=== PATIENT | female | born 1985 | race Caucasian/White ===

== ENCOUNTER 2023-06-29 09:48 | Outpatient (CLI) | payer OTHER, SELFPAY ==
--- NOTE | ~2023-06-29 | MMUS_ITS ---
EXAMINATION: MM diagnostic dannie BI w reyna, US breast LT limited HISTORY: Upper inner quadrant left breast lump TECHNIQUE: ML, MLO and CC 3-D tomosynthesis images of both breasts were performed and synthetic 2-D i mages were generated. CAD analysis was submitted and interpreted. High resolution targeted left breas t ultrasound examination at complaint of left breast lump was performed. COMPARISON: None BREAST PARENCHYMAL COMPOSITION: There are scattered areas of fibroglandular density. FINDINGS: MAMMOGRAPHIC FINDINGS: No suspicious mass or architectural distortion, malignant calcification, skin thickening or retractio n is detected. ULTRASOUND: Targeted ultrasound at the area of clinical complaint of left breast lump at 9:00 8 cm from the nippl e reveals no suspicious mass or shadowing, cyst or other significant sonographic abnormality. IMPRESSION: 1. No evidence of malignancy 2. Routine annual mammographic screening beginning at age 40 is recommended unless there are earlier symptoms or physical findings BI-RADS Category 1: Negative Reviewed, dictated and finalized at location A. IMPRESSION: 1. No evidence of malignancy 2. Routine annual mammographic screening beginning at age 40 is recommended unl ess there are earlier symptoms or physical findings BI-RADS Category 1: Negative
== END 2023-06-29 09:49 | disposition home or self-care (01) ==
PROVIDERS: PCP Internal Medicine; Visit Provider Obstetrics & Gynecology Gynecology
DX: N63.22 Unspecified lump in the left breast, upper inner quadrant (principal)
CPT/HCPCS: 76642; 77062; 77066; G0279

== ENCOUNTER 2024-11-05 14:47 | Outpatient (CLI) | payer BC, SELFPAY ==
--- OUTSIDE RECORDS SUMMARY | 2024-11-05 14:52 | XMS_ITS | Referral Summary ---
Author Organization [facility] Address [address] [place] [id number] Phone Care Team Providers Care Construction Supervisor/Carpenter Name Role Phone Marcus Escudero MD Primary Care Provide r Allergies No known active allergies Medications ondansetron ODT (ZOFRAN-ODT) 4 mg disintegrating tablet Take 1 tablet (4 mg total) by mouth every 8 (eight) hours as needed for nausea or vomiting 12 tablet 3 Active ketorolac (TORADOL) 10 mg tablet Take 1 tablet (10 mg total) by mouth every 6 (six) hours as needed for pain 10 tablet 3 Active Social History Tobacco Use Types Packs/Day Years Used Date Smoking Tobacco: Never Assessed Personal Safety Answer Date Recorded Getting School Help Needed Not on file 09/27 Comments Unknown Sex and Gender Information Value Date Recorded Sex Assigned at Not on file Legal Sex Female 9:31 AM CDT Gender Identity Not on file Sexual Orientation Not on file Last Filed Vital Signs Vital Sign Reading Time Taken Comments Blood Pressure 119/82 09/25/2022 1:27 PM CDT Pulse 86 09/25/2022 1:27 PM CDT Temperature 36.4 C (97.5 F) 09/25/2022 9:31 AM CDT Respiratory Rate 20 09/25/2022 1:27 PM CDT Oxygen Saturation 97% 09/25/2022 1:27 PM CDT Inhaled Oxygen Concentration - - Weight 88.7 kg (195 lb 8.8 oz) 09/25/2022 9:31 A M CDT Height 167.6 cm (5' 6) 09/25/2022 9:31 AM CDT Body Mass Index 31.56 09/25/2022 9:31 AM CDT Plan of Treatment Not on file Insurance [facility] Address: [place] [address] CHOICE PLUS [facility]/PPO Address: [place] [address] Care Teams Construction Supervisor/Carpenter Relationship Specialty Start Date End Date Marcus Escudero MD [address] [id number] PCP - General Internal Medicine 09/25/22
--- OUTSIDE RECORDS SUMMARY | 2024-11-05 14:52 | XMS_ITS | Data Portability ---
Author Organization [place] [facility], Main Office Address [address] [place] [address] Assessment Encounter Date Assessment Date Assessment LastModified by Organization Details LastModified Time 05/01/2023 05/01/2023 05/28/2022: Omar Tay NP Endo TSH/FT4/CMP/L ipids: WNL A1C 5.5 Insulin 38.1H 11/14/2022: Labs: Stable 03/24/2023: PLT 475 TG 205 Not available 05/01/2023 11:06:45 09/25/2023 09/25/2023 05/28/2022: Omar Tay NP Endo TSH/FT4/CMP/L ipids: WNL A1C 5.5 Insulin 38.1H 11/14/2022: Labs: Stable 03/24/2023: PLT 475 TG 205 09/18/2023: WBC: 11.8, PLT 459 TG 298 A1C 5.6 Not available 09/25/2023 10:05:07 05/22/2024 05/22/2024 05/28/2022: Omar Tay NP Endo TSH/FT4/CMP/L ipids: WNL A1C 5.5 Insulin 38.1H 11/14/2022: Labs: Stable 03/24/2023: PLT 475 TG 205 09/18/2023: WBC: 11.8, PLT 459 TG 298 A1C 5.6 Not available 05/22/2024 18:24:05 09/18/2024 09/18/2024 05/28/2022: Omar Tay NP Endo TSH/FT4/CMP/L ipids: WNL A1C 5.5 Insulin 38.1H 11/14/2022: Labs: Stable 03/24/2023: PLT 475 TG 205 09/18/2023: WBC: 11.8, PLT 459 TG 298 A1C 5.6 06/17/2024: a1c 5.9 VIT D 22.0 wbc 13.1 [email or web address] Not available 09/18/2024 18:47:43 Plan of Treatment Reminders Order Date Submit Date Provider Last Modified By Organization Details Last Modified Time Details Appointments Follow Up 15 2024 04:15P Brenda grover MD Not available Not available Not available Lab HbA1c (hemoglob in A1c), blood 2024 025 LUCIA [facility], [address] [place] [address], [address], [place], [address], 09/18/2024 14:29:54 microalbu min, urine 2024 025 LUCIA [facility], [address] [place] [address], [address], [place], [address], 09/18/2024 14:29:54 DICK + rf (antinucl ear antibodie s + rheumatoi d factor), quantitat wendy, serum 2024 025 [email or web address] [facility], [address] [place] [address], [address], [place], [address], 09/25/2024 09:01:39 C-reactiv e protein, quantitat wendy, serum or plasma 2024 025 [email or web address] [facility], [address] [place] [address], [address], [place], [address], 09/25/2024 09:01:48 ESR (erythroc yte sedimenta tion rate), blood 2024 025 [email or web address] [facility], [address] [place] [address], [address], [place], [address], 09/25/2024 09:01:57 ccp (cyclic citrullin ated peptide) iga+igg, serum 2024 025 [place] [address] [facility], [address], [address], [place], [address], 09/25/2024 09:02:07 rf (rheumato id factor), serum 2024 025 [place] [address] [facility], [address], [address], [place], [address], 09/25/2024 09:02:16 lipid panel, serum 2024 025 [facility], [facility], [address], [place], [address], 09/18/2024 14:29:53 CBC w/ auto diff 2024 025 [facility], [facility] [address], [address], [place], [address], 09/18/2024 14:29:54 CMP, serum or plasma 2024 025 [facility], [facility] [address], [address], [place], [address], 09/18/2024 14:29:53 TSH + free T4, serum 2024 025 [facility], [facility] [address], [address], [place], [address], 09/18/2024 14:29:52 vitamin D, 25-hydrox y, total, serum 2024 025 [facility], [facility] [address], [address], [place], [address], 09/18/2024 14:29:52 vitamin B12 + folate, serum or blood 2024 025 L[facility]IA [facility], [address], [address], [place], [address], 09/18/2024 14:29:53 HbA1c (hemoglob in A1c), blood 2024 025 [facility], [address], [address], [place], [address], 06/21/2024 16:12:48 microalbu min, urine 2024 025 [facility], [address], [address], [place], [address], 06/21/2024 16:12:50 lipid panel, serum 2024 025 [facility], [address] [facility] [address], [address], [place], [address], 06/21/2024 16:12:47 CBC w/ auto diff 2024 025 [facility], [address], [address], [place], [address], 06/21/2024 16:12:44 CMP, serum or plasma 2024 025 [facility], [address] [facility] [address], [address], [place], [address], 06/21/2024 16:12:45 TSH + free T4, serum 2024 025 [facility], [address], [address], [place], [address], 06/21/2024 16:12:43 vitamin D, 25-hydrox y, total, serum 2024 025 L[facility], [address], [address], [place], [address], 06/21/2024 16:12:49 vitamin B12 + folate, serum or blood 2024 025 LUCIA [facility], [address], [address], [place], [address], 06/21/2024 16:12:42 HbA1c (hemoglob in A1c), blood 2023 024 natalie [facility], [address], [address], [place], [address], 09/23/2024 10:10:17 microalbu min, urine 2023 024 natalie [facility], [address], [address], [place], [address], 09/23/2024 10:10:17 lipid panel, serum 2023 024 natalie [facility], [address], [address], [place], [address], 09/23/2024 10:10:18 CBC w/ auto diff 2023 024 natalie [facility], [address], [address], [place], [address], 09/23/2024 10:10:18 CMP, serum or plasma 2023 024 natalie [facility], [address], [address], [place], [address], 09/23/2024 10:10:18 TSH + free T4, serum 2023 024 [email or web address] [facility], [address], [address], [place], [address], 09/23/2024 10:10:18 vitamin D, 25-hydrox y, total, serum 2023 024 natalie [facility], [address], [address], [place], [address], 09/23/2024 10:10:17 vitamin B12 + folate, serum or blood 2023 024 natalie [facility], [address], [address], [place], [address], 09/30/2024 09:04:21 vitamin D, 25-hydrox y, total, serum 2023 024 natalie [facility], [address], [address], [place], [address], 11/01/2023 17:36:19 HbA1c (hemoglob in A1c), blood 2023 024 natalie [facility], [address], [address], [place], [address], 11/01/2023 17:36:19 microalbu min, urine 2023 024 natalie [facility], [address], [address], [place], [address], 11/01/2023 17:36:19 lipid panel, serum 2023 024 natalie [facility], [address], [address], [place], [address], 11/01/2023 17:36:19 CBC w/ auto diff 2023 024 [place] [address] [facility], [address] [facility] [address], [address], [place], [address], 11/01/2023 17:36:20 CMP, serum or plasma 2023 024 [place] [address] [facility], [address] [facility] [address], [address], [place], [address], 11/01/2023 17:36:20 TSH + free T4, serum 2023 024 [place] [address] [facility], [address] [facility] [address], [address], [place], [address], 11/01/2023 17:36:20 Referral hematolog ist referral - Please call patient to schedule an appointme nt. Thank you. 2024 025 ANTONIO Marvin MD, [address], [place], [address], 09/25/2024 10:35:38 podiatris t referral - Please call patient to schedule an appointme nt. Thank you. 2024 025 LUCIA Burnham DPM, [address] [facility], [address], [place], [address], 09/22/2024 17:20:30 gastroent erologist referral - Please call patient to schedule an appointme nt. Thank you. 2024 025 ANTONIO Robles MD, [address] [facility], [address], [place], [address], 09/25/2024 10:25:21 hematolog ist referral - Please call patient to schedule an appointme nt. Thank you. 2024 025 torsten Marvin MD, [address], [place], [address], 06/27/2024 15:22:30 gastroent erologist referral - Please call patient to schedule an appointme nt. Thank you. 2024 025 torsten Robles MD, [address], [address], [place], [address], 06/21/2024 09:20:36 endocrino logy referral - Please call patient to schedule an appoitnme nt. Thank you. 2024 025 torsten Bush MD, [address], [place], [address], 06/21/2024 09:20:25 hematolog ist referral 2023 024 [email or web address] 2 Carlin Marvin MD, [address], [place], [address], 07/22/2024 09:08:18 gastroent erologist referral 2023 024 [email or web address] 2 Krista Robles MD, [address], [address], [place], [address], 07/22/2024 09:08:19 endocrino logy referral 2023 024 [email or web address] Everton Bush MD, [address], [place], [address], 03/25/2024 09:30:03 dermatolo gist referral 2023 024 [email or web address] [facility], [facility] [place], [address], 03/25/2024 09:30:02 endocrino logy referral 2023 024 [email or web address] Everton Bush MD, [address], [place], [address], 11/29/2023 08:51:24 dermatolo gist referral 2023 024 [email or web address] [facility], [address] [place], [address], 11/01/2023 17:35:40 Procedures None recorded. Surgeries None recorded. Imaging US, liver - Please call patient to schedule. [address] ([facility]), [address] [place], [address], 09/18/2024 15:24:44 US, liver - Please call patient to schedule. [address] ([facility]), [address] [place], [address], 06/26/2024 11:21:56 US, liver [address] [facility], [address] [place] [address], [address], 04/15/2024 14:16:08 Medication Orders Zepbound 7.5 mg/0.5 mL subcutane ous pen injector 2024 025 [id number], [address], [place], [id number], 09/18/2024 14:30:05 cholecalc iferol (vitamin D3) 1,250 mcg (50,000 unit) capsule 2024 025 [facility] #29176, [address], [place], [id number], 09/18/2024 14:29:43 losartan 25 mg tablet 2024 025 [facility] #[id number], [address], [place], [id number], 05/22/2024 18:37:23 rosuvasta tin 40 mg tablet 2024 025 [facility] #06979, [address], [place], [id number], 05/22/2024 18:37:24 escitalop jose 20 mg tablet 2024 025 [facility] #77311, [address], [place], [id number], 05/22/2024 18:37:23 trazodone 50 mg tablet 2024 025 [facility] #07207, [address], [place], [id number], 05/22/2024 18:37:23 metformin ER 500 mg tablet,ex tended release 24 hr 2024 025 [facility] #[id number], [address], [place], [id number], 05/22/2024 18:37:25 Vascepa 1 gram capsule 2023 024 [email or web address] [facility], [address] [place] [address], [address], 09/29/2023 11:02:26 Ozempic 2 mg/dose (8 mg/3 mL) subcutane ous pen injector 2023 024 [email or web address] [facility], [address] [place] [address], [address], 05/22/2024 18:18:48 rosuvasta tin 40 mg tablet 2022 023 [facility], [address] [place] [address], [address], 01/17/2023 16:45:51 Ozempic 2 mg/dose (8 mg/3 mL) subcutane ous pen injector 2022 023 [facility], [address] [place] [address], [id number], 05/22/2024 18:18:48 escitalop jose 10 mg tablet 2022 023 [email or web address] [facility], [address] [place] [address], [address], 05/22/2024 18:32:38 ergocalci ferol (vitamin D2) 1,250 mcg (50,000 unit) capsule 2022 023 [facility], [address] [place] [address], [address], 05/22/2024 18:18:07 losartan 25 mg tablet 2022 023 [facility], [address] [place] [address], [address], 01/17/2023 16:45:52 metformin ER 500 mg tablet,ex tended release 24 hr 2022 023 [facility], [address] [place] [address], [address], 01/17/2023 16:43:53 spironola ctone 100 mg tablet 2022 023 [facility], [address] [place] [address], [address], 01/17/2023 16:43:53 Precious Fe 1.5/30 (28) 1.5 mg-30 mcg (21)/75 mg (7) tablet 2022 023 [facility], [address] [place] [address], [address], 01/17/2023 16:46:32 Patient TargetsNo targets recorded. Patient InstructionsNo instructions recorded. Reason for Referral Speech Communication Instructor Referral for S kin lesion Referring Physician: Kota Escudero Internal Medicine, Encounter Date: 05/01/2023 Endocrinology Referral for P olycystic ovary syndrome Referring Physician: Kota Escudero Internal Medicine, Encounter Date: 05/01/2023 Speech Communication Instructor Referral for S kin lesion Referring Physician: Kota Escudero Internal Medicine, Encounter Date: 09/25/2023 Endocrinology Referral for P olycystic ovary syndrome Referring Physician: Kota Escudero Internal Medicine, Encounter Date: 09/25/2023 Referring Physician: Kota Escudero Internal Medicine, Encounter Date: 09/25/2023 Installation Coordinator Referral for Steatotic liver disease Referring Physician: Kota Escudero Internal Medicine, Encounter Date: 09/25/2023 Endocrinology Referral for P olycystic ovary syndrome Please call patient to schedule an appoitnment. Thank you. Referring Physician: Kota Escudero Internal Medicine, Encounter Date: 05/22/2024 Please call patient to sched ule an appointment. Thank you. Referring Physician: Alo Calloway Medicine, Encounter Date: 05/22/2024 Installation Coordinator Referral for Steatotic liver disease Please call patient to schedule an appointment. Thank you. Referring Physician: Kota Escudero Internal Medicine, Encounter Date: 05/22/2024 Please call patient to sched ule an appointment. Thank you. Referring Physician: Kota Escudero Internal Medicine, Encounter Date: 09/18/2024 Installation Coordinator Referral for Steatotic liver disease Please call patient to schedule an appointment. Thank you. Referring Physician: Kota Escudero Internal Medicine, Encounter Date: 09/18/2024 Dental Cream Maker Referral for Pred iabetes Please call patient to schedule an appointment. Thank you. Referring Physician: Kota Escudero, Internal Medicine, Encounter Date: 09/18/2024 Results Created Date Observation Date Name Description Value Unit Range Abnormal Flag Note LastModifiedBy Organization Detail LastModifiedTime 06/29/19 24 06/29/2023 dayani marisol/trinidad robles tic resul t No observ ation record ed. [facility] [address] [place], [address], 06/29/2023 11:42:40 Result Notes None recorded. Problems Name Problem SNOMED Code Status Onset Date Resolution Date Notes Provider Name and Address Organization Details Recorded Time Sinusitis 35262536 Active Not Available [facility] 3 15:14:49 Upper respiratory infection 15537679 Active Not Available [facility] 3 15:14:49 Urinary tract infectious disease 63787365 Active Not Available [facility] 3 15:14:49 Infectious mononucleosis 407353835 Active 2014 Not Available [facility] 3 15:14:49 Right flank pain 381954588 Active 2021 Not Available [facility] 3 15:14:48 Increased frequency of urination 741761185 Active 2021 Not Available [facility] 3 15:14:48 Polycystic ovary syndrome 969766067 Active 2021 Not Available [facility] 3 15:14:49 Prediabetes 145052185 Active 2021 Not Available [facility] 3 15:14:49 Hyperlipidemi a 68108631 Active 2021 Not Available [facility] 3 15:14:49 Generalized anxiety disorder 07863963 Active 2021 Not Available [facility] 3 15:14:48 Vitamin D deficiency 84212612 Active 2021 Not Available [facility] 3 15:14:49 Dyslipidemia 971145994 Active 2021 Not Available [facility] 3 15:14:49 COVID-19 786869906 Active 2022 Not Available [facility] 3 15:14:50 Obesity 382553983 Active 2022 Carole Marcus MD [address], [address], [place], [address] , [facility] [employer] [facility] 3 17:00:24 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 2022 Kota owens MD [address], [address], [place], [address] , [facility] [employer] [facility] 3 13:27:01 Thyroid nodule 003957446 Active 2022 Kota owens MD [address], [address], [place], [address] , [facility] [employer] [facility] 3 13:27:06 Leukocytosis 183533879 Active 2022 Kota owens MD [address], [address], [place], [address] , [facility] [employer] [facility] 3 13:27:11 Moderate recurrent major depression 61237840 Active 2022 Kota owens MD [address], [address], [place], [address] , [facility] 3 13:27:17 Kidney stone 23934199 Active 2022 Kota owens MD [address], [place], [address] , [facility] 3 13:27:46 Persistent insomnia 480825786 Active 2022 Kota owens MD [address], [place], [address] , [facility] 3 13:27:53 Finding of body mass index 733595177 Active 2022 Kota owens MD [address], [place], [address] , [facility] [employer] [facility] 3 16:49:57 Skin lesion 17042029 Active 2022 Kota owens MD [address], [place] [address], [place], [address] , [facility] [employer] [facility] 3 16:07:00 Essential hypertension 05202563 Active 2022 Carole Marcus MD [address] [place] [address], [place], [address] , [facility] [employer] [facility] 3 16:44:59 Thrombocytosi s 9046717 Active 2023 Kota owens MD [address], [place] [address], [place], [address] , [facility] [employer] [facility] 4 11:06:59 Serum vitamin B12 below reference range 649605019 Active 2023 Kota owens MD [address], [place] [address], [place], [address] , [facility] [employer] [facility] 4 10:04:58 Anxiety 92286099 Active 2023 Barbara Morris CMA null, [facility] [employer] [facility] 4 11:37:51 Eruption 691994810 Active 2024 Kota owens MD [address], [address], [address] , [facility] [employer] [facility] 5 14:29:50 Problem Notes None recorded. Procedures Surgical History Date Name Laterality Status Provider Name and Address Organization Details Recorded Time extraction of wisdom tooth completed Not Available [facility] 06/15/2022 15:13:11 Imaging Results None recorded. Procedure Notes None recorded. Medical Equipment None Reported. Allergies No known drug allergies Medications Name Sig Start Date Stop Date Status Note LastModified by Organization Details LastModified Time Prescriptio n - Prior Authorizati on Request active Not Available Not Available N ot Available Singulair 10 mg tablet Take 1 tablet every day by oral route for 90 days. 11/07 completed Not Available Not Available Not Available amoxicillin 500 mg capsule TAKE 1 CAPSULE BY MOUTH THREE TIMES DAILY UNTIL GONE 10/12 completed Not Available Not Available Not Available fluconazole 100 mg tablet 06/30 completed Not Available Not Available Not Available buspirone 5 mg tablet Take 1 tablet twice a day by oral route for 30 days. active Not Available Not Available No t Available metformin 500 mg tablet Take 2 tablets twice a day by oral route. 07/19 completed Not Available Not Available Not Available venlafaxine ER 37.5 mg capsule,ext ended release 24 hr TAKE 1 CAPSULE BY MOUTH ONCE DAILY FOR 7 DAYS 10/12 completed Not Available Not Available Not Available prednisone 10 mg tablet Take by oral route. active Not Available Not Available No t Available venlafaxine ER 75 mg capsule,ext ended release 24 hr TAKE 1 CAPSULE BY MOUTH ONCE DAILY 03/17 completed Not Available Not Available Not Available trazodone 50 mg tablet TAKE 1 TABLET BY MOUTH DAILY NEEDED active Not Available Not Available No t Available fluconazole 150 mg tablet TAKE 1 TABLET BY MOUTH DAILY AT ONSET OF INFECTION . MAY REPEAT 1 TIME EVERY 3 DAYS DIRECTED 05/22 completed Not Available Not Available Not Available hydrocodone 5 mg-acetamin ophen 325 mg tablet active Not Available Not Available No t Available tretinoin 0.025 % topical cream APPLY TO AFFECTED AREAS ON FACE DAILY AFTER CLEANSING . LAYER WITH MOISTURIZ ER NEEDED 09/24 completed Not Available Not Available Not Available prednisone 20 mg tablet TAKE 3 TABLETS BY MOUTH DAILY FOR 3 DAYS THEN 2 TABLETS DAILY X 2 DAYS THEN 1 TABLET DAILY X 2 DAYS 07/28 completed Not Available Not Available Not Available spironolact one 100 mg tablet TAKE 2 TABLETS BY MOUTH EVERY DAY DIRECTED active Not Available Not Available No t Available Zithromax Z-Javon 250 mg tablet TAKE 2 TABLETS (500 MG) BY ORAL ROUTE ONCE DAILY FOR 1 DAY THEN 1 TABLET (250 MG) BY ORAL ROUTE ONCE DAILY FOR 4 DAYS 03/26 completed Not Available Not Available Not Available ciprofloxac in 500 mg tablet active Not Available Not Available Not Available Tamiflu 75 mg capsule Take 1 capsule twice a day by oral route for 5 days. 07/28 completed Not Available Not Available Not Available sulfamethox azole 800 mg-trimetho prim 160 mg tablet TAKE 1 TABLET BY MOUTH TWICE DAILY FOR 7 DAYS 07/28 completed Not Available Not Available Not Available tramadol 50 mg tablet TAKE 1 TABLET EVERY 8 HOURS BY MOUTH NEEDED FOR PAIN 07/19 completed Not Available Not Available Not Available ketorolac 10 mg tablet 01/17 completed Not Available Not Available Not Available oxycodone-a cetaminophe n 5 mg-325 mg tablet TAKE 1 TABLET BY MOUTH EVERY 6 TO 8 HOURS NEEDED 07/28 completed Not Available Not Available Not Available amoxicillin 875 mg tablet TAKE 1 TABLET BY MOUTH EVERY 12 HOURS FOR 10 DAYS 11/24 completed Not Available Not Available Not Available tamsulosin 0.4 mg capsule Take 1 capsule every day by oral route. 10/16 completed Not Available Not Available Not Available clotrimazol e-betametha sone 1 %-0.05 % topical cream 11/07 completed Not Available Not Available Not Available promethazin e 25 mg tablet active Not Available Not Available Not Available losartan 25 mg tablet TAKE 1 TABLET BY MOUTH DAILY active Not Available Not Available No t Available ergocalcife rol (vitamin D2) 1,250 mcg (50,000 unit) capsule TAKE 1 CAPSULE BY MOUTH ONCE A WEEK 05/22 completed Not Available Not Available Not Available ondansetron 4 mg disintegrat ing tablet 09/24 completed Not Available Not Available Not Available metformin ER 500 mg tablet,exte nded release 24 hr TAKE 2 TABLETS BY MOUTH DAILY WITH A MEAL active Not Available Not Available No t Available lisinopril 2.5 mg tablet Take 1 tablet every day by oral route. 11/24 completed Not Available Not Available Not Available spironolact one 50 mg tablet Take 2 tablets every day by oral route in the morning for 90 days. 07/19 completed Not Available Not Available Not Available amoxicillin 875 mg-potassiu m clavulanate 125 mg tablet TAKE 1 TABLET BY MOUTH TWICE DAILY FOR 10 DAYS 05/22 completed Not Available Not Available Not Available escitalopra m 10 mg tablet TAKE 1 TABLET BY MOUTH EVERY DAY IN THE MORNING 05/22 completed Not Available Not Available Not Available escitalopra m 20 mg tablet TAKE 1 TABLET BY MOUTH EVERY DAY active Not Available Not Available No t Available Microgestin 1.5/30 (21) 1.5 mg-30 mcg tablet 10/12 completed Not Available Not Available Not Available rosuvastati n 20 mg tablet Take 1 tablet every 72 hours by oral route in the evening for 90 days. 11/07 completed Not Available Not Available Not Available rosuvastati n 40 mg tablet TAKE 1 TABLET BY MOUTH DAILY active Not Available Not Available No t Available .09/13 (28) 1.5 mg-30 mcg (21)/75 mg (7) tablet TAKE 1 TABLET BY MOUTH DAILY active Not Available Not Available No t Available escitalopra m 5 mg tablet TAKE 1 TABLET DAILY (NO ALCOHOL, DRIVING OR WITH SEDATING MEDICATIO NS, NOTIFY IF ANY CHANGE IN MOOD OR BEHAVIOR) 07/28 completed Not Available Not Available Not Available nitrofurant oin monohydrate /macrocryst als 100 mg capsule 11/21 completed Not Available Not Available Not Available chlorhexidi ne gluconate 0.12 % mouthwash SWISH AND SPIT 15 ML(CC) BY MOUTH TWICE DAILY FOR 2 WEEKS. 10/12 completed Not Available Not Available Not Available chromium TK 1C PO QD 02/09 completed Not Available Not Available Not Available Zyrtec 2015 active OTC Not Available Not Available Not Avai lable metformin ER 500 mg 24 hr tablet,exte nded release (gastric retention) TAKE 2 TABLETS DAILY WITH A MEAL 05/22 completed Not Available Not Available Not Available cholecalcif torrie (vitamin D3) 1,250 mcg (50,000 unit) capsule Take 1 capsule every week by oral route for 90 days. 2024 active Not Available Not Available Not Avai lable hernan extract 500 mg capsule Take by oral route. 02/19 completed Not Available Not Available Not Available icosapent ethyl 1 gram capsule Take 2 capsules twice a day by oral route for 90 days. active Not Available Not Available No t Available Enskyce 0.15 mg-0.03 mg tablet 10/16 completed Not Available Not Available Not Available Flonase Allergy Relief 50 mcg/actuati on nasal spray,suspe nsion [place] 1 spray every day by intranasa l route for 30 days. 11/07 completed Not Available Not Available Not Available Vitamin B12 TK 1T PO QD 02/09 completed Not Available Not Available Not Available Ozempic 0.25 mg or 0.5 mg (2 mg/1.5 mL) subcutaneou s pen injector Inject 0.5 mg twice a week by subcutane ous route at dinner for 90 days. 07/28 completed Not Available Not Available Not Available ID NOW COVID-19 Test Kit TEST DIRECTED 03/17 completed Not Available Not Available Not Available Ozempic 1 mg/dose (4 mg/3 mL) subcutaneou s pen injector Inject 1 mg every week by subcutane ous route for 28 days. 11/21 completed Not Available Not Available Not Available Flowflex COVID-19 Antigen Home Test kit TEST DIRECTED TODAY 11/21 completed Not Available Not Available Not Available Paxlovid 300 mg (150 mg x 2)-100 mg tablets in a dose pack TAKE 2 NIRMATREL VIR TABLETS AND 1 RITONAVIR TABLET TOGETHER BY MOUTH TWICE DAILY FOR 5 DAYS. HOLD ROSUVASTA TIN. 07/28 completed Not Available Not Available Not Available Ozempic 2 mg/dose (8 mg/3 mL) subcutaneou s pen injector inject 2mg subcutane ously once a week 05/22 completed Not Available Not Available Not Available Zepbound 5 mg/0.5 mL subcutaneou s pen injector ADMINISTE R 5 MG UNDER THE SKIN EVERY WEEK 09/18 completed Not Available Not Available Not Available Zepbound 2.5 mg/0.5 mL subcutaneou s pen injector ADMINISTE R 2.5 MG UNDER THE SKIN 1 TIME A WEEK 09/18 completed Not Available Not Available Not Available Zepbound 7.5 mg/0.5 mL subcutaneou s pen injector ADMINISTE R 7.5 MG UNDER THE SKIN EVERY WEEK active Not Available Not Available No t Available Vitals Date Recorded Body height Body mass index (BMI) Body weight Body temperature Heart rate Systolic And Diastolic Provider Name and Address Organization Details Last Updated DateTime 4 167.64 cm 32.3 kg/m2 42027.4 7 g 97.2 [degF] 90 /min 126/68 mm[Hg] MARY KATE Wheeler [facility] [employer] [facility] 4 10:58:36 Date Recorded Body height Body mass index (BMI) Body weight Body temperature Heart rate Systolic And Diastolic Provider Name and Address Organization Details Last Updated DateTime 5 167.64 cm 34.5 kg/m2 43225.7 7 g 97.5 [degF] 100 /min 130/90 mm[Hg] Rosalva Edwards Darrion [facility] [employer] [facility] 5 18:22:06 Date Recorded Body height Body mass index (BMI) Body weight Body temperature Heart rate Oxygen saturation Oxygen saturation in Arterial blood by Pulse oximetry Systolic And Diastolic Provider Name and Address Organization Details Last Updated DateTime 5 167.64 cm 33.7 kg/m2 83203.8 1 g 97.4 [degF] 99 /min 100 % 100 % 112/76 mm[Hg] Pricila Parra MA [facility] [employer] [facility] 5 14:04:30 Date Recorded Body height Body mass index (BMI) Body weight Body temperature Heart rate Oxygen saturation Oxygen saturation in Arterial blood by Pulse oximetry Systolic And Diastolic Provider Name and Address Organization Details Last Updated DateTime 4 167.64 cm 33.7 kg/m2 50759.8 1 g 95.1 [degF] 98 /min 97 % 97 % 108/72 mm[Hg] Pricila Parra MA [facility] [employer] [facility] 4 09:44:58 Date Recorded Body height Body mass index (BMI) Body weight Body temperature Respiratory rate Heart rate Systolic And Diastolic Provider Name and Address Organization Details Last Updated DateTime 3 167.64 cm 31.8 kg/m2 10531.4 2 g 97.6 [degF] 16 /min 92 /min 137/95 mm[Hg] Gloria De Santiago RN [facility] [employer] [facility] 3 16:29:45 Social History Question Answer Notes LastModified by Organizat ion Details LastModified Time Tobacco Smoking Status Never Smoker Not Available [employer] 06/15/2022 15:13:03 Do You Have An Advance Directive? No [id number] Information not available 06/15/2022 If You Are , What Was Your Level Of Alcohol Consumption Prior To ? None MIGRATION.72291 [id number] Information not available 06/15/2022 What Is Your Level Of Caffeine Consumption? Moderate MIGRATION.56199 [id number] Information not available 06/15/2022 In The 14 Days Before Symptom Onset, Have You Had Close Contact With A Laboratory-confir med COVID-19 While That Case Was Ill? No MIGRATION.50111 [id number] Information not available 06/15/2022 In The 14 Days Before Symptom Onset, Have You Had Close Contact With A Person Who Is Under Investigation For COVID-19 While That Person Was Ill? No MIGRATION.55234 62879 Information not available 06/15/2022 What Type Of Diet Are You Following? REGULAR MIGRATION.77573 76578 Information not available 06/15/2022 What Is The Highest Grade Or Level Of School You Have Completed Or The Highest Degree You Have Received? [id number] MIGRATION.82253 53790 Information not available 06/15/2022 What Is The Fluoride Status Of Your Home? Unknown MIGRATION.56689 74042 Information not available 06/15/2022 Are There Any Guns Present In Your Home? No MIGRATION.62867 75435 Information not available 06/15/2022 Do You Use Insect Repellent Routinely? Yes MIGRATION.39225 [id number] Information not available 06/15/2022 Where Do You Live? [place] MIGRATION.55845 80517 Information not available 06/15/2022 Do You Have A Medical Power Of Abrading Machine Tender? No MIGRATION.35352 61160 Information not available 06/15/2022 What Was The Date Of Your Most Recent Tobacco Screening? 09/18/2024 Information not available 09/18/2024 Have You Ever Been Counseled For Unhealthy Alcohol Use? No MIGRATION.76459 51551 Information not available 06/15/2022 Do You Have Any Pets? Yes MIGRATION.59830 83021 Information not available 06/15/2022 What Is Your Relationship Status? Single MIGRATION.87329 60000 Information not available 06/15/2022 Do You Use Your Seat Belt Or Car Seat Routinely? Yes MIGRATION.84402 35458 Information not available 06/15/2022 Do You Have Smoke And Carbon Monoxide Detectors In Your Home? Yes MIGRATION.43010 33985 Information not available 06/15/2022 Are You Passively Exposed To Smoke? Yes MIGRATION.47507 89955 Information not available 06/15/2022 Are There Any Smokers In Your House? Yes MIGRATION.03138 96519 Information not available 06/15/2022 Do You Use Sunscreen Routinely? Yes MIGRATION.82279 41443 Information not available 06/15/2022 Has Tobacco Cessation Counseling Been Provided? No N/a [email or web address] Information not available 05/01/2023 Have You Recently Traveled Abroad? No MIGRATION.15224 87032 Information not available 06/15/2022 Do You Have Any Dietary Restrictions? No MIGRATION.76834 80580 Information not available 06/15/2022 Sex: Female Functional Status Question Answer Note LastModified by Organizat ion Details LastModified Time Do you use any illicit or recreational drugs? No MIGRATION.092684 5789 Information not available 06/15/2022 Do you or have you ever used any other forms of tobacco or nicotine? No MIGRATION.079535 2748 Information not available 06/15/2022 What is your level of alcohol consumption? Moderate MIGRATION.659443 9286 Information not available 06/15/2022 Are you currently employed? 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 Moderate MIGRATION.221139 0694 Information not available 06/15/2022 Mental Status Question Answer Note LastModified by Organizat ion Details LastModified Time Do you feel stressed (tense, restless, nervous, or anxious, or unable to sleep at night)? [id number] Information not available 06/15/2022 Family History Relationship Description Onset Age of this Age Resolved Age Notes LastModified by Organization Details LastModified Time Father Diabetes mellitus [email or web address] Not available 2023 11:00:09 Father Hypertensive disorder [email or web address] Not available 2023 11:00:15 Father Hyperlipidem ia [email or web address] Not available 2023 11:00:26 Father Myocardial infarction [email or web address] Not available 05/01 11:00:36 Mother Diabetes mellitus [email or web address] Not available 2023 11:00:09 Mother Hyperlipidem ia [email or web address] Not available 2023 11:00:26 Maternal Grandmother Malignant tumor of breast [email or web address] Not available 2023 11:00:51 Sister History of Hodgkin lymphoma [email or web address] Not available 2023 11:01:07 Medical History Condition Response EYE PROBLEMS Y HEADACHES/MIGRAINES Y GERD/NAUSEA Y DIABETES, TYPE DEPRESSION (INCLUDING POST ) Y INSOMNIA Y HAVE YOU BEEN HOSPITALIZED OR SEEN IN [facility] IN THE PAST YEAR ? N HIGH CHOLESTEROL / HYPERLIPIDEMIA Y Gynecological History Statement/Question Response How many live births 0 Frequency of Cycle (Q days) 6 Date of LMP 09/18/2024 Date of Last Pap Current Control Method BCPs Age at Menarche 14 Obstetrics History GPAL:G 0 P 0 0 0 0 Type Value Multiple Births 0 Full Term 0 Induced 0 Spontaneous 0 Premature 0 Living 0 Ectopics 0 Total 0 Immunizations Vaccine Type Date Status Note Provider Nam e and Address Organization Details Recorded Time COVID-19, mRNA, LNP-S, PF, 100 mcg/0.5mL dose or 50 mcg/0.25mL dose 12/18/2020 completed Not Available [facility] 3 15:17:31 COVID-19, mRNA, LNP-S, PF, 100 mcg/0.5mL dose or 50 mcg/0.25mL dose 10/14/2020 completed Not Available [facility] 3 15:17:31 Influenza, split virus, quadrivalent, PF 02/19/2018 completed Not Available [facility] 3 15:17:31 Past Encounters Encounter ID Performer Location Encounter Start Date Encounter Closed Date Diagnosis/Indication Diagnosis SNOMED-CT Code Diagnosis ICD10 Code Diagnosis Note [id number] MD ISAMAR JoséS[facility] Internal [facility] [place] [facility] [address] [facility] [place] [address] 10/12/2020 00:00:00 10/14/2020 09:31:44 [id number] MD ISAMAR WhitmanS[facility] [address] [place] [address] 02/09/2021 00:00:00 02/09/2021 18:03:00 [id number] Kota owens MD [facility] Internal [facility] [place] [address] [place] [address] [place] [address] 02/15/2021 00:00:00 02/15/2021 18:35:10 [id number] Kota owens MD [facility] Internal Med [place] [address] [place] [address] [place] [address] 03/17/2021 00:00:00 03/17/2021 17:29:59 [id number] S_Histor ic_[place] [facility] [place] [address] [place] [address] 05/31/2021 00:00:00 05/31/2021 15:10:58 [id number] Kota owens MD [facility] Internal Med [place] [address] [place] [address] [place] [address] 07/19/2021 00:00:00 07/19/2021 17:46:10 [id number] S_Histor ic_[place] [facility] [place] [address] [place] [address] 11/22/2021 00:00:00 11/22/2021 11:49:17 [id number] Kota owens MD [facility] Internal Med [place] [address] [place] [address] [place] [address] 11/24/2021 00:00:00 12/16/2021 09:04:52 [id number] Kota owens MD [facility] Internal Med [place] [address] [place] [address] [place] [address] 12/01/2021 00:00:00 12/01/2021 18:08:59 [id number] Cyrus sidhu MD [facility] General Surgery [address] [place] [address] [address] [place] [address] [place] [address] 12/14/2021 00:00:00 12/14/2021 15:09:55 [id number] Cyrus sidhu MD [facility] General Surgery [address] [place] [address] [place] [address] 02/01/2022 00:00:00 02/01/2022 13:07:06 [id number] Carole Marcus MD [facility] [address] [place] [address] 07/28/2022 16:18:05 07/28/2022 17:24:14 Obesity 725868639 E66.9 she has plateaued at 200 pounds down from 234 pounds- she has not been able to start on ozempic 2 mg weekly dose but tolerating the 1 mg dosage just fine- she has no GI upset or nausea. Will continue on current regimen. She admits to needing to start on a more routine diet and exercise regimen- was recently on vacation and plans to be more stringent as she will be on summer break in less than one month. Polycystic ovary syndrome 086460528 E28.2 Continue on metformin for insulin sensitizat ion and spironolac tone 200 mg daily as her hair growth is satisfacto ry and consistent . Vitamin D deficiency 347 40182 E55.9 Continue vitamin D 50 but okay to drop to every other week with summer and increased sun exposure. Generalize d anxiety disorder 86609196 F41.1 Refill escitalopr am 10 mg daily as her anxiety is well controlled . Spent up to 26 minutes preparing to see the patient (eg, review of tests), obtaining and/or reviewing separately obtained history, performing a medically appropriat e examinatio n and evaluation , counseling and educating the patient, ordering medication s, tests, along with documentin g clinical informatio n in the electronic health record, independen tly interpreti ng results and communicat ing results to the patient. RTC in 6 month. Patient was provided a handwritte n lab order which contains our fax number. If she chooses to go outside of the [facility] system to obtain labwork she was advised to provide our fax number and my informatio n to the lab she will be obtaining labwork from in order to have her labs properly forwarded over for me to review so there is no loss of follow up due to use of outside network. She was also advised to contact our clinic informing us that she has completed her labwork so we are aware we will need to reach out to the appropriat e laboratory to request her results be forwarded to us so I might have the ability to review and make further medical decision making in her case. She voiced understand ing. [id number] Kota owens MD [facility] [place] [address] [facility], [place] [address] [place] [address] 08/09/2022 16:14:49 08/09/2022 17:13:26 Screening - NAD 289688607 Z13.9 Mammogram: Has family history of breast cancer, ordered mammogram 08/09/2022 Get yearly flu shotGet Tdap, but she declines this todayUTD on COVID 19 vaccine done PAP: Sees Dr Ferguson OC RTC in 6 monthsGet labs todayER if worseShe did verbalize her understand ing of the above Polycystic ovary syndrome 377631254 E28.2 On metforminO n spirinolac tone Not on tramadol given by Dr Margarette Senaees her OBDr Amrit last OV 05/31/2021 , next 11/22/2021 Steatotic liver disease 988426239 K76.0 US liver 10/21/2020 : Fatty liverSee GI Dr Robles last OV 12/25/2020 Thyroid nodule 320264498 E04.1 OV 10/12/2020 :US thyroid 11/07/2018 Was to get another US thyroid, will order OV 02/15/2021 :US thyroid 10/21/2020 : Neg OV 03/17/2021 :Get labs OV 07/19/2021 :TSH WNL OV 11/24/2021 :Does well, normal TSH OV 08/09/2022 :Get labs Leukocytosis 881810781 D 72.829 Repeat the labs Moderate r ecurrent major depression 67371690 F33.1 Started on venlafaxin e by her OB, feels that this causes her to 'sweat'Will l wean off and start on buspirone, all side effects explained to herNot suicidal or homicidalD eclines any psychiatry referrals OV 03/17/2021 :Could not tolerate the buspar or the effexorDid well on the lexaproNot suicidal or homicidalD oes wellRenewe d OV 07/19/2021 :On lexapro 5mg dailyDoes wellNot suicidal or homicidalD eclines any referrals to psychiatry OV 11/24/2021 :ON lexapro 10mg daily, as per her hx Dr Marcus increased the dose OV 08/09/2022 :On lexapro, does well, given by Dr Marcus on 07/28/2022 Vitamin D deficiency 347 [address]55[address]9 On [place] d 68400M weekly as per her OB Dr DoeGet labs Prediabetes 130775833 R7 3.03 On metforminO n ozempic 2mg weekly see case sent to Dr Marcus 08/08/2022 Could not tolerate the lisinopril caused coughOn losartan 25mg daily, renewedDoe s well Sees Dr Marcus,last OV 07/28/2022 , next 01/17/2023 Get labs Obesity 039322191 E66.9 More diet and exercise is needed Kidney stone 12435122 N2 0.0 Does well now Persistent insomnia 1919 10454 G47.09 Sleep hygeine explained On trazodoneA ll side effects explained Adult heal th examination 516441985 Z00.00 Depression screening 171 256799 Z13.31 Finding of body mass index 829330096 E66.9 Family his tory of breast cancer 835945162 Z80.3 Hyperlipidemia 78666204 E78.5 On rosuvastat in 40mg dailyGet labs [id number] Kota owens MD [facility] [place] [address] [facility] [place] [address] 11/21/2022 15:00:51 11/21/2022 16:09:13 Screening - NAD 735871523 Z13.9 Mammogram: Has family history of breast cancer, ordered mammogram 08/09/2022 11/18/2022 : Negative Get yearly flu shotGet Tdap, but she declines this todayUTD on COVID 19 vaccine done PAP: Sees Dr Ferguson OC RTC in 6 monthsGet labs todayER if worseShe did verbalize her understand ing of the above Polycystic ovary syndrome 563104512 E28.2 On metforminO n spirinolac tone Not on tramadol given by Dr Margarette Senaees her OBDr Amrit last OV 05/31/2021 , next 11/22/2021 Steatotic liver disease 328537332 K76.0 US liver 10/21/2020 : Fatty liverSee GI Dr Robles last OV 12/25/2020 Thyroid nodule 694115428 E04.1 OV 10/12/2020 :US thyroid 11/07/2018 Was to get another US thyroid, will order OV 02/15/2021 :US thyroid 10/21/2020 : Neg OV 03/17/2021 :Get labs OV 07/19/2021 :TSH WNL OV 11/24/2021 :Does well, normal TSH OV 08/09/2022 :Get labs Leukocytosis 685551801 D 72.829 Repeat the labs Moderate r ecurrent major depression 10630419 F33.1 Started on venlafaxin e by her OB, feels that this causes her to 'sweat'Will l wean off and start on buspirone, all side effects explained to herNot suicidal or homicidalD eclines any psychiatry referrals OV 03/17/2021 :Could not tolerate the buspar or the effexorDid well on the lexaproNot suicidal or homicidalD oes wellRenewe d OV 07/19/2021 :On lexapro 5mg dailyDoes wellNot suicidal or homicidalD eclines any referrals to psychiatry OV 11/24/2021 :ON lexapro 10mg daily, as per her hx Dr Marcus increased the dose OV 08/09/2022 :On lexapro, does well, given by Dr Marcus on 07/28/2022 Vitamin D deficiency [address]55[address]9 On [address] d 51063U weekly as per her OB Dr Diaz labs Prediabetes 452699658 R7 3.03 On metforminO n ozempic 2mg weekly see case sent to Dr Marcus 08/08/2022 Could not tolerate the lisinopril caused coughOn losartan 25mg daily, renewedDoe s well Sees Dr Marcus,last OV 07/28/2022 , next 01/17/2023 Get labs Obesity 397195940 E66.9 More diet and exercise is needed Kidney stone 85155424 N2 0.0 Does well now Persistent insomnia 1919 96690 G47.09 Sleep hygeine explained On trazodoneA ll side effects explained Hyperlipidemia 13622499 E78.5 On rosuvastat in 40mg dailyGet labs Skin lesion 63523851 L98 .9 Flat dark mole noted on the L lower lateral back, refer to dermatolog y [id number] Carole Marcus MD [facility] [address] [place] [address] 01/17/2023 16:19:50 01/17/2023 17:26:00 Obesity 679237084 E66.9 A1C improved since on GLP1 hormone therapy no long in 6% range now down to 5% range- she has lost over 50 pounds- has more energy/ better mood and better focus since going on ozempic. Continue on 2 mg once weekly. Recommende d she adhere to at least 1200 calorie per day intake with multiple small 300-400 calorie meals (4-5 small meals per day) on sedentary days up to 1600 calories on days she is able to undergo moderate level activity at least 30-40 minutes with 20 minutes of that time at 70% of her target heart rate in order to reach total caloric output and assist in weight loss. She is motivated and willing to go to gym daily and discussed cutting out GMOs along with preservati ves and focusing on fruits, veggies, unprocesse d beans and nuts along with meats for the bulk of her diet. Polycystic ovary syndrome 493190568 E28.2 Continue on metformin for insulin sensitizat ion and spironolac tone 200 mg daily as her hair growth is satisfacto ry and consistent . Refill precious FE as her cycles are regulated on therapy. Vitamin D deficiency 347 91954 E55.9 Continue vitamin D 50 weekly as goal up to 50 ng/ML to optimize bone and immune health. Hyperlipidemia 66720739 E78.5 Continue on statin therapy. Essential hypertension 60616543 I10 Continue on losartan. Generalize d anxiety disorder 59815284 F41.1 Refill escitalopr am 10 mg daily as her anxiety is well controlled . Spent up to 25 minutes preparing to see the patient (eg, review of tests), obtaining and/or reviewing separately obtained history, performing a medically appropriat e examinatio n and evaluation , counseling and educating the patient, ordering medication s, tests, along with documentin g clinical informatio n in the electronic health record, independen tly interpreti ng results and communicat ing results to the patient. Patient can be followed by PCP - she/he is aware of my resignatio n and last day of January 27. If needed his/her PCP can refer patient to another endocrinol ogist in the area. All questions /concerns answered and refills necessary at visit today. [id number] Kota owens MD [facility] [place] [address] [facility] , [facility] [place] [address] 05/01/2023 10:52:01 05/01/2023 11:19:43 Screening - NAD 420899465 Z13.9 Mammogram: Has family history of breast cancer, ordered mammogram 08/09/2022 11/18/2022 : Negative Get yearly flu shot declined 05/01/2023 Get Tdap, but she declines this todayUTD on COVID 19 vaccine done PAP: Sees Dr Ferguson OCShe wants to make her own apt 05/01/2023 RTC in 4 monthsGet labs todayER if worseShe did verbalize her understand ing of the above Polycystic ovary syndrome 312112652 E28.2 On metformin ER 500mg 2 tabs dailyOn spironolac tone 100mg daily Not on tramadol given by Dr Margarette Senaees her OBDr Amrit in the past Steatotic liver disease 749203444 K76.0 US liver 10/21/2020 : Fatty liverSee GI Dr Robles last OV 12/25/2020 Thyroid nodule 359585988 E04.1 US thyroid 11/07/2018 US thyroid 10/21/2020 : Neg Get labs Leukocytosis 714480508 D 72.829 Repeat the labs Moderate r ecurrent major depression 15534731 F33.1 Could not venlafaxin e by her OB, feels that this causes her to 'sweat'Cou ld not tolerate the buspar or the effexor On lexapro, does well, given by Dr Marcus on 07/28/2022 Not suicidal or homicidal Vitamin D deficiency 347 [address]857 E55[address]9 [address] d 63523D weekly as per her OB Dr Diaz labs Prediabetes 445431864 R7 3.03 On metforminO n ozempic 2mg weekly renewed 05/01/2023 Could not tolerate the lisinopril caused coughOn losartan 25mg daily, aaliyahDoboby salas well Sees Dr Marcus,last OV 07/28/2022 , next 01/17/2023 Get labs Obesity 084208774 E66.9 More diet and exercise is needed Kidney stone 57418349 N2 0.0 Does well now Persistent insomnia 1919 47304 G47.09 Sleep hygeine explained On trazodoneA ll side effects explained Hyperlipidemia 01543485 E78.5 On rosuvastat in 40mg dailyMore diet and exerciseGe t labs Skin lesion 52513802 L98 .9 Flat dark mole noted on the L lower lateral back, refer to dermatolog y again 05/01/2023 Thrombocytosis 6019696 D 75.839 Repeat the CBC [id number] Kota owens MD [facility] francois [address] [facility] [address] , [place] [address] 09/25/2023 09:37:16 09/25/2023 10:07:01 Screening - NAD 633556500 Z13.9 Mammogram: Has family history of breast cancer, ordered mammogram 08/09/2022 11/18/2022 : NegativeLe ft Breast 06/29/2023 : Negative, as per radiology do mammogram at age 42 yearsToday 09/25/2023 , states that Dr Connolly wants to do a biopsy for the L breast d/t her family history Get yearly flu shot declined 05/01/2023 Get Tdap, but she declines this todayUTD on COVID 19 vaccine done PAP: Sees Dr Ferguson OCShe wants to make her own apt 05/01/2023 RTC in 4 monthsGet labs todayER if worseShe did verbalize her understand ing of the above Polycystic ovary syndrome 331091182 E28.2 On metformin ER 500mg 2 tabs dailyOn spironolac tone 100mg daily Not on tramadol given by Dr Margarette Senaees her OBDr Amrit in the past Steatotic liver disease 106323461 K76.0 US liver 10/21/2020 : Fatty liverSee GI Dr Robles last OV 12/25/2020 LFTs WNL 09/18/2023 Get US liver Thyroid nodule 829291650 E04.1 US thyroid 11/07/2018 US thyroid 10/21/2020 : Neg Get labs Leukocytosis 620681541 D 72.829 Repeat the labs Moderate r ecurrent major depression 02307512 F33.1 Could not venlafaxin e by her OB, feels that this causes her to 'sweat'Cou ld not tolerate the buspar or the effexor On lexapro, does well, given by Dr Marcus on 07/28/2022 Not suicidal or homicidal Vitamin D deficiency 347 [address]67 E55.9 On vit d 78768Q weekly as per her OB Dr Diaz labs Prediabetes 803583000 R7 3.03 On metforminO n ozempic 2mg weeklyCoul d not tolerate the lisinopril caused coughOn losartan 25mg daily, renewedDoe s well Seen Dr Sebastian labs Obesity 779770578 E66.9 More diet and exercise is needed Kidney stone 37301070 N2 0.0 Does well now Persistent insomnia 1919 67629 G47.09 Sleep hygeine explained On trazodoneA ll side effects explained Hyperlipidemia 31105878 E78.5 On rosuvastat in 40mg dailyGet on vascepa 1gm 2 caps bidMore diet and exerciseGe t labs Skin lesion 50508391 L98 .9 Flat dark mole noted on the L lower lateral back, refer to dermatolog y again 05/01/2023 Thrombocytosis 0369404 D 75.839 Repeat the CBC Serum brandon min B12 below reference range 613531575 R79.89 History an d physical examination, pre-employment 250001463 Z02.1 Form filled out Personal Health Exam Record, Cesar AMARO 09/25/2023 [id number] Kota owens MD [facility] [address] [facility] [address] [place] [address] 05/22/2024 17:20:43 05/22/2024 18:51:03 Screening - NAD 431609241 Z13.9 Mammogram: Has family history of breast cancer, ordered mammogram 08/09/2022 11/18/2022 : NegativeLe ft Breast 06/29/2023 : Negative, as per radiology do mammogram at age [address] Connolly wants to do a biopsy for the L breast d/t her family history Get yearly flu shot declined 05/01/2023 Get Tdap, but she declines this todayUTD on COVID 19 vaccine done PAP: Sees Dr Ferguson OCShe wants to make her own apt 05/01/2023 RTC in 4 monthsGet labs todayER if worseShe did verbalize her understand ing of the above Polycystic ovary syndrome 211171420 E28.2 On metformin ER 500mg 2 tabs dailyOn spironolac tone 100mg daily Not on tramadol given by Dr Margarette Senaees her OBDr Amrit in the past Steatotic liver disease 232617922 K76.0 US liver 10/21/2020 : Fatty liverSee GI Dr Robles last OV 12/25/2020 LFTs WNL 09/18/2023 Get US liver Thyroid nodule 603601396 E04.1 US thyroid 11/07/2018 US thyroid 10/21/2020 : Neg Get labs Leukocytosis 324517749 D 72.829 Repeat the labs Moderate r ecurrent major depression 27749894 F33.1 Could not venlafaxin e by her OB, feels that this causes her to 'sweat'Cou ld not tolerate the buspar or the effexor On lexapro, does well, given by Dr Marcus on 07/28/2022 Not suicidal or homicidalW ill increase to 20mg daily d/t in family 05/22/2024 Renewed the trazodone as needed Vitamin D deficiency 347 90849 E55.9 On vit d 08375G weekly as per her OB Dr Diaz labs Prediabetes 115615375 R7 3.03 On metforminN ot on ozempic 2mg weeklyCoul d not tolerate the lisinopril caused coughOn losartan 25mg daily, renewedDoe s well Seen Dr Romulo go Obesity 825620606 E66.9 More diet and exercise is neededGet GLP-1 if her insurance approvesNo thyroid cancer, no MEN2, pancreatic complaints , or parathyroi d complaints , is on medication s for depression Kidney stone 30420897 N2 0.0 Does well now Persistent insomnia 1919 61557 G47.09 Sleep hygeine explained On trazodoneA ll side effects explained Hyperlipidemia 93218969 E78.5 On rosuvastat in 40mg dailyOn vascepa 1gm 2 caps bidMore diet and exerciseGe t labs Skin lesion 37760048 L98 .9 Flat dark mole noted on the L lower lateral back, refer to dermatolog y again 05/01/2023 Does not wish to see dermatolog y at this time 05/22/2024 Thrombocytosis 4741126 D 75.839 Repeat the CBC Serum brandon min B12 below reference range 627518353 R79.89 History an d physical examination, pre-employment 363827520 Z02.1 Form filled out Personal Health Exam Record, [place] 09/25/2023 [id number] Kota owens MD [facility] [address] [place] [address] 09/18/2024 13:58:38 09/18/2024 14:36:05 Screening - NAD 132910073 Z13.9 Mammogram: Has family history of breast cancer, ordered mammogram 08/09/2022 11/18/2022 : NegativeLe ft Breast 06/29/2023 : Negative, as per radiology do mammogram at age [address] Connolly wants to do a biopsy for the L breast d/t her family history Get yearly flu shot declined 05/01/2023 Get Tdap, but she declines this todayUTD on COVID 19 vaccine done PAP: Sees Dr Doe in 10/2024On OCShe wants to make her own apt 05/01/2023 RTC in 4 monthsGet labs todayER if worseShe did verbalize her understand ing of the above Polycystic ovary syndrome 454922754 E28.2 On metformin ER 500mg 2 tabs dailyOn spironolac tone 100mg daily Not on tramadol given by Dr Margarette Senaees her OBDr Wood in the past 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 US liver 10/21/2020 : Fatty liverSee GI Dr Robles last OV 12/25/2020 LFTs WNL 09/18/2023 Get US liver Thyroid nodule 332819037 E04.1 US thyroid 11/07/2018 US thyroid 10/21/2020 : Neg Get labs Moderate r ecurrent major depression 90554227 F33.1 Could not venlafaxin e by her OB, feels that this causes her to 'sweat'Cou ld not tolerate the buspar or the effexor On lexapro, does well, given by Dr Marcus on 07/28/2022 Not suicidal or homicidalW ill increase to 20mg daily d/t in family 05/22/2024 Renewed the trazodone as needed Vitamin D deficiency 347 [address] E55.9 On [address] d 18053Q weekly with calciumGet labs Prediabetes 388483997 R7 3.03 On metforminN ot on ozempic 2mg weeklyCoul d not tolerate the lisinopril caused coughOn losartan 25mg daily, renewedDoe s well Seen Dr MarcusGet labs Obesity 567609426 E66.9 More diet and exercise is neededGet GLP-1 if her insurance approvesNo thyroid cancer, no MEN2, pancreatic complaints , or parathyroi d complaints , is on medication s for depression On Zepbound 5mg weekly, tolerates it wellNow wants to increase to 7.5mg weeklyMust hydrate and take supplement sMust see OB for prevention , states that she is on BC Kidney stone 54423213 N2 0.0 Does well now Persistent insomnia 1919 38382 G47.09 Sleep hygeine explained On trazodoneA ll side effects explained Hyperlipidemia 79621102 E78.5 On rosuvastat in 40mg dailyOn vascepa 1gm 2 caps bidMore diet and exerciseGe t labs Skin lesion 59941660 L98 .9 Flat dark mole noted on the L lower lateral back, refer to dermatolog y again 05/01/2023 Does not wish to see dermatolog y at this time 05/22/2024 Thrombocytosis 9003553 D 75.839 Repeat the CBC Serum brandon min B12 below reference range 766375221 R79.89 History an d physical examination, pre-employment 060962347 Z02.1 Form filled out Personal Health Exam Record, [place] 09/25/2023 Eruption 679814089 R21 Noted on the erin ext elbowGet labs Health Concerns Section Related Observation LastModified by Organization Elise ls LastModified Time None Recorded Concern Status LastModified by Organization Details LastModified Time None Recorded Advance Directives Directive N: Payers Insurance Date Sequence Insurance Name Policy Number Policy Thompson Covered Member ID Thompson Member ID Guarantor Name 06/17/2024 1 [facility] [id number] Ruth Wallis [id number] Ruth Darrion Banks 09/15/2024 1 [employer] [id number] Ruth Banks [id number] Ruth Darrion Darren Notes Date Note Type Note Provider Name and Address Organization Details Recorded Time 01/17/2023 text/html 37 yo female com es in for follow up in management of PCOS, weight management, vit D def and PHYLLIS. last seen in July at that time we continued ozempic 1 mg weekly along with metformin and spironolactone 200 mg daily. We continued vitamin D weekly along with escitalopram 10 mg daily. She has lost over 50 pounds since 2019. She has lost another 12 pounds since her last visit. She has better energy and better focus overall. She has overall better mood and no further anxiety / depression since on escitalopram. labs from 11/06: (PCP labs)TSH of 1.88 uIU/mlFT4 of 1.07 ng/mLa1c 5.6%LFT/Cr normal Carole Marcus MD [address] [facility], [facility] [address], [place], [address], [place] [facility] [place] [facility] 01/17/2023 17:01:03 05/01/2023 text/html Here to james Dodge hx:PCOSReviewed social family and surgical historyHere to discuss her use of metforminShe states that her OB started her on this and then recently increased it and now she takes 4 tabs a dayThis has caused her some diarrhea and some gastritis type symptoms OV 02/19/18:ACV:Has been c/o some rib pain, and spots on the tongueShe states that she has noted the spots since one week, and they have decreased in size since thenShe does not smoke or chew tobaccoNo difficulty swallowing, no pain in tongue, no speech impedimentShe also has erin lower rib cage pain, she denies any trauma, she feels that the pain is resolved now, no SOB, no fevers or chills OV 02/26/18:ACV:Here with c/o URI sxStarted on the z-packC/o nasal congestionNo blood in sputum or noseMild coughNo chest pain or SOBNo rash OV 03/26/18:Here for her routine aptShe did do the labs on and is here to review theseShe still has some nasal congestionOV 11/07/18:Here for ACV:C/o abdominal pain, this is located in the 'entire abdomen'She denies any nausea or vomiting or any constipation or diarrheaNo blood in stool, no fevers or chills, also has a normal appetiteShe did not keep her routine apt and has not done any new labs at this timeOV 10/12/2020:Here for her annual wellness visitLabs done by Vasyl Schultz her OBNoted to again have a cyst on the lower part of the mouth on the left sideShe did see her OBOV 02/15/2021:Here for her 4 month aptShe is doing Sara did do the labs on 1C/o 'kidney stone' on the L side, feels that it is getting better, was given tramadol by Dr Guidry wants to stop the effexor and get on another depression med, as effexor causes her to 'sweat' at night, she is not suicidal or homicidalOV 03/17/2021:Here for her one month aptShe feels that the lisinopril causes a coughShe is doing well other wiseWants the refill on the lexaproOV 07/19/2021:Here for her routine aptShe is doing Sara reinoso do the labs on 05/18/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 to sleepOV 11/24/2021:Here for her routine apt, she is doing well, she is here with her fatherSarmando did do the labs and has seen Dr Garcia 12/01/2021:ACV:Has a knot in the R shoulder blade, non tender but has noted some back ache when it is palpated, she would like to get this removed OV 08/09/2022:Here for f/u apt, she is doing well today, here for wellness visit OV 05/01/2023: Here for her f/u apt, she feels well, she did do the labs Kota Escudero MD [address], [facility] [address], [place], [address], [place] [facility] [employer] [facility] 05/01/2023 11:26:40 09/25/2023 text/html Here to james Dodge hx:PCOSReviewed social family and surgical historyHere to discuss her use of metforminShe states that her OB started her on this and then recently increased it and now she takes 4 tabs a dayThis has caused her some diarrhea and some gastritis type symptoms OV 02/19/18:ACV:Has been c/o some rib pain, and spots on the tongueShe states that she has noted the spots since one week, and they have decreased in size since thenShe does not smoke or chew tobaccoNo difficulty swallowing, no pain in tongue, no speech impedimentShe also has erin lower rib cage pain, she denies any trauma, she feels that the pain is resolved now, no SOB, no fevers or chills OV 02/26/18:ACV:Here with c/o URI sxStarted on the z-packC/o nasal congestionNo blood in sputum or noseMild coughNo chest pain or SOBNo rash OV 03/26/18:Here for her routine aptShe did do the labs on and is here to review theseShe still has some nasal congestionOV 11/07/18:Here for ACV:C/o abdominal pain, this is located in the 'entire abdomen'She denies any nausea or vomiting or any constipation or diarrheaNo blood in stool, no fevers or chills, also has a normal appetiteShe did not keep her routine apt and has not done any new labs at this timeOV 10/12/2020:Here for her annual wellness visitLabs done by Vasyl Schultz her OBNoted to again have a cyst on the lower part of the mouth on the left sideShe did see her OBOV 02/15/2021:Here for her 4 month aptShe is doing wellShe did do the labs on 1C/o 'kidney stone' on the L side, feels that it is getting better, was given tramadol by Dr Guidry wants to stop the effexor and get on another depression med, as effexor causes her to 'sweat' at night, she is not suicidal or homicidalOV 03/17/2021:Here for her one month aptShe feels that the lisinopril causes a coughShe is doing well other wiseWants the refill on the lexaproOV 07/19/2021:Here for her routine aptShe is doing wellShe did do the labs on 05/18/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 to sleepOV 11/24/2021:Here for her routine apt, she is doing well, she is here with her fatherShe did do the labs and has seen Dr Garcia 12/01/2021:ACV:Has a knot in the R shoulder blade, non tender but has noted some back ache when it is palpated, she would like to get this removed OV 08/09/2022:Here for f/u apt, she is doing well today, here for wellness visit OV 05/01/2023: Here for her f/u apt, she feels well, she did do the labs OV 09/25/2023: Here for her f/u apt, she is doing well today Kota Escudero MD [address] [place] [address], [facility] [address], [place], [address], [facility] 09/25/2023 17:23:25 05/22/2024 text/html Here to james Dodge hx:PCOSReviewed social family and surgical historyHere to discuss her use of metforminShe states that her OB started her on this and then recently increased it and now she takes 4 tabs a dayThis has caused her some diarrhea and some gastritis type symptoms OV 02/19/18:ACV:Has been c/o some rib pain, and spots on the tongueShe states that she has noted the spots since one week, and they have decreased in size since thenShe does not smoke or chew tobaccoNo difficulty swallowing, no pain in tongue, no speech impedimentShe also has erin lower rib cage pain, she denies any trauma, she feels that the pain is resolved now, no SOB, no fevers or chills OV 02/26/18:ACV:Here with c/o URI sxStarted on the z-packC/o nasal congestionNo blood in sputum or noseMild coughNo chest pain or SOBNo rash OV 03/26/18:Here for her routine aptShe did do the labs on and is here to review theseShe still has some nasal congestionOV 11/07/18:Here for ACV:C/o abdominal pain, this is located in the 'entire abdomen'She denies any nausea or vomiting or any constipation or diarrheaNo blood in stool, no fevers or chills, also has a normal appetiteShe did not keep her routine apt and has not done any new labs at this timeOV 10/12/2020:Here for her annual wellness visitLabs done by Vasyl Schultz her OBNoted to again have a cyst on the lower part of the mouth on the left sideShe did see her OBOV 02/15/2021:Here for her 4 month aptShe is doing Sara did do the labs on 1C/o 'kidney stone' on the L side, feels that it is getting better, was given tramadol by Dr Guidry wants to stop the effexor and get on another depression med, as effexor causes her to 'sweat' at night, she is not suicidal or homicidalOV 03/17/2021:Here for her one month aptShe feels that the lisinopril causes a coughShe is doing well other wiseWants the refill on the lexaproOV 07/19/2021:Here for her routine aptShe is doing Sara did do the labs on 05/18/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 to sleepOV 11/24/2021:Here for her routine apt, she is doing well, she is here with her fatherShe did do the labs and has seen Dr Garcia 12/01/2021:ACV:Has a knot in the R shoulder blade, non tender but has noted some back ache when it is palpated, she would like to get this removed OV 08/09/2022:Here for f/u apt, she is doing well today, here for wellness visit OV 05/01/2023: Here for her f/u apt, she feels well, she did do the labs OV 09/25/2023: Here for her f/u apt, she is doing well today OV 05/22/2024: Here for her f/u apt, she feels well today, no new labs, she has had multiple deaths in the family and would like to get her lexapro dose increased Kota Escudero MD [address] [facility], [address], [place], [address], [facility] [employer] 05/22/2024 19:01:50 09/18/2024 text/html Here to james Dodge hx:PCOSReviewed social family and surgical historyHere to discuss her use of metforminShe states that her OB started her on this and then recently increased it and now she takes 4 tabs a dayThis has caused her some diarrhea and some gastritis type symptoms OV 02/19/18:ACV:Has been c/o some rib pain, and spots on the tongueShe states that she has noted the spots since one week, and they have decreased in size since thenShe does not smoke or chew tobaccoNo difficulty swallowing, no pain in tongue, no speech impedimentShe also has erin lower rib cage pain, she denies any trauma, she feels that the pain is resolved now, no SOB, no fevers or chills OV 02/26/18:ACV:Here with c/o URI sxStarted on the z-packC/o nasal congestionNo blood in sputum or noseMild coughNo chest pain or SOBNo rash OV 03/26/18:Here for her routine aptShe did do the labs on and is here to review theseShe still has some nasal congestionOV 11/07/18:Here for ACV:C/o abdominal pain, this is located in the 'entire abdomen'She denies any nausea or vomiting or any constipation or diarrheaNo blood in stool, no fevers or chills, also has a normal appetiteShe did not keep her routine apt and has not done any new labs at this timeOV 10/12/2020:Here for her annual wellness visitLabs done by Vasyl Schultz her OBNoted to again have a cyst on the lower part of the mouth on the left sideShe did see her OBOV 02/15/2021:Here for her 4 month aptShe is doing Sara did do the labs on 1C/o 'kidney stone' on the L side, feels that it is getting better, was given tramadol by Dr Guidry wants to stop the effexor and get on another depression med, as effexor causes her to 'sweat' at night, she is not suicidal or homicidalOV 03/17/2021:Here for her one month aptShe feels that the lisinopril causes a coughShe is doing well other wiseWants the refill on the lexaproOV 07/19/2021:Here for her routine aptShe is doing Sara did do the labs on 05/18/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 to sleepOV 11/24/2021:Here for her routine apt, she is doing well, she is here with her fatherShe did do the labs and has seen Dr Garcia 12/01/2021:ACV:Has a knot in the R shoulder blade, non tender but has noted some back ache when it is palpated, she would like to get this removed OV 08/09/2022:Here for f/u apt, she is doing well today, here for wellness visit OV 05/01/2023: Here for her f/u apt, she feels well, she did do the labs OV 09/25/2023: Here for her f/u apt, she is doing well today OV 05/22/2024: Here for her f/u apt, she feels well today, no new labs, she has had multiple deaths in the family and would like to get her lexapro dose increased OV 09/18/2024: Here for her f/u apt, she is doing well today, wants to get an increase the dose of the zepbound Kota Escudero MD [address], [address], [place], [address], [place] [employer] [facility] 09/18/2024 18:48:07 OBGyn Episode No OBEpisode recorded.
--- OUTSIDE RECORDS SUMMARY | 2024-11-05 14:52 | XMS_ITS | Clinical Summary ---
Author Organization [facility] Virtual Care Address [address] [place] [address] Phone Care Team Providers Care Supervisor [address] Name Role Phone Marcus Escudero MD Primary [...] 09/25/2022 9:31 AM CDT Plan of Treatment Health Maintenance Due Date Last Done Comments Cervical Cancer Screening 1987 Depression Screening 1987 Hepatitis C Screening 1987 DTaP/Tdap/Td Vaccine (5 - Tdap) 1998 11/30/1989, 12/02/1988, 10/13/1988, Additional history exists Varicella Vaccines (1 of 2 - 13+ 2-dose series) 2000 Hepatitis B Screening 2005 Regular Well Visit/Exam 18-64 2005 Covid-19 Vaccine ( season) 2023 12/18/2020, 10/14/2020 Influenza Vaccine (#1) 2024 02/19/2018 HPV Vaccines Aged Out No longer eligi ble based on patient's age to complete this topic Pneumococcal vaccine <65 Aged Out No longer eligible based on patient's age to complete this topic Insurance [facility] Address: [facility] [address] [place] [address] [facility]: [place] [address] [address] Relationship Specialty [place] [address] [place] [id number] PCP - General Internal Medicine 09/25/22
[2024-11-05 15:10] LABS: Hematocrit 40.5 % (37.0-47.0); Hemoglobin 13.1 g/dL (12.0-15.0); Immature Granulocyte Percent A 0.6 % (0-0.5); Lymphocytes Absolute Auto 2.69 K/mm3 (0.9-3.2); Mean Corpuscular HGB Conc 32.3 g/dl (32-36); Mean Corpuscular Hemoglobin 29.6 pg (26-34); Mean Corpuscular Volume 91.6 fl (80-100); Nucleated Red Blood Cells Absolute Auto 0.000 K/mm3 (0.0-0.012); Nucleated Red Blood Cells Perc 0.0 % (0.0-0.2); Platelet Count Result 462 k/mm3 (150-375); Red Blood Count 4.42 M/mm3 (4.2-5.4); White Blood Count 11.3 K/mm3 (4.5-10.0)
[2024-11-05 16:56] LABS: Alanine Aminotransferase 27 U/L (6-35); Albumin Level 4.2 g/dL (3.5-5.1); Alkaline Phosphatase 64 U/L (38-126); Anion Gap 8 mmol/L (4-12); Aspartate Amino Transferase 48 U/L (14-36); Bilirubin,Total 0.4 mg/dL (0.2-1.3); Blood Urea Nitrogen 8 mg/dL (7-17); CRP 0.5 mg/dL (<1.0); Calcium 9.4 mg/dL (8.4-10.2); Carbon Dioxide 25 mmol/L (22-30); Chloride 103 mmol/L (98-107); Estimated Glomerular Filt Rate > 60; Glucose 115 mg/dL (65-110); Potassium 4.0 mmol/L (3.4-5.0); Sodium 136 mmol/L (137-145); Total Protein 7.3 g/dL (6.3-8.2)
[2024-11-05 17:03] LABS: Iron 81 ug/dL (37-170)
[2024-11-05 17:13] LABS: Percent Iron Saturation 16 % (20-50)
[2024-11-05 17:29] LABS: Thyroid Stimulating Hormone 1.120 uIU/mL (0.465-4.680)
[2024-11-05 17:40] LABS: Ferritin 13.70 ng/mL (6.24-137)
[2024-11-05 18:05] LABS: Vitamin B12 295.0 pg/mL (239-931)
== END 2024-11-05 14:48 | disposition home or self-care (01) ==
PROVIDERS: PCP Internal Medicine; Visit Provider Internal Medicine Hematology & Oncology
DX: D75.838 Other thrombocytosis (principal); D64.9 Anemia, unspecified
CPT/HCPCS: 36415; 80053; 82607; 82728; 82746; 83540; 83550; 84443; 85025; 85652; 86140